=== PATIENT | female | born 2000 ===

== ENCOUNTER 2021-01-04 08:16 | Day surgery (SDC) | payer OTHER ==
[~2021-01-04 08:16] MED LIST: ZYRTEC10 M3 PO
[2021-01-04] MEDS ORDERED: PERCOCET 5-3251 EACH PO (14:57)
== END 2021-01-04 18:35 | disposition home or self-care (01) ==
LOC: CIR.AMB 08:16
PROVIDERS: ATTEND Surgery
DX: C73 Malignant neoplasm of thyroid gland (principal); Z20.822 Contact with and (suspected) exposure to COVID-19; E06.3 Autoimmune thyroiditis